=== PATIENT | male | born 1955 | race Caucasian/White ===

== ENCOUNTER 2021-10-22 10:24 | Outpatient (CLI) | payer BC, SELFPAY ==
[2021-10-22 12:21] LABS: Vitamin B12 > 2000 pg/mL (211-911)
[2021-10-22 12:48] LABS: Thyroid Stim Hormone (TSH) 0.91 uIU/mL (0.358-3.74)
[2021-11-03 10:09] LABS: Free Kappa Light Chains 16.7 mg/L (3.3-19.4); Free Lambda Light Chains 17.1 mg/L (5.7-26.3)
== END 2021-10-22 23:59 | disposition home or self-care (01) ==
LOC: MTLAB 10:25
PROVIDERS: PCP Internal Medicine; Referring Provider Psychiatry & Neurology Neurology; Visit Provider Psychiatry & Neurology Neurology
DX: G62.9 Polyneuropathy, unspecified (principal); E78.00 Pure hypercholesterolemia, unspecified
CPT/HCPCS: 36415; 82607; 82746; 83883; 84425; 84443

== ENCOUNTER → 2022-11-15 | Outpatient (CLI) | payer MEDICARE, SELFPAY ==
--- NOTE | 2022-11-15 10:07 | NEURO ---
NCS and/or EMG Patient Report Ordering Doctor: Freddy Power DATE OF SERVICE: 11/15/22 Indication: Numbness in the fingertips of both hands. History of prior carpal tunnel release surgery bilaterally with resolution of prior symptoms a number of years ago. No axial or radicular neck pain. Findings: Nerve conduction studies were performed in the right and left upper extremities. The right median motor study recording the abductor pollicis brevis showed a normal amplitude, prolonged distal latency and mildly slowed conduction velocity. The right ulnar motor study recording the abductor digiti minimi showed a normal amplitude, normal distal latency and normal conduction velocity. No conduction block or focal slowing was present across the elbow. The right median sensory response recording digit two showed a slightly reduced amplitude, prolonged latency and slowed conduction velocity. The right ulnar sensory response recording digit five showed a normal amplitude, latency and conduction velocity. The right radial sensory response recording over the extensor snuff box showed a normal amplitude, latency and conduction velocity. The left median motor study recording the abductor pollicis brevis showed a normal amplitude, prolonged distal latency and borderline conduction velocity. The left ulnar motor study recording the abductor digiti minimi showed a normal amplitude, normal distal latency and normal conduction velocity. No conduction block or focal slowing was present across the elbow. The left median sensory response recording digit two showed a slightly reduced amplitude, prolonged latency and slowed conduction velocity. The left ulnar sensory response recording digit five showed a borderline amplitude, normal latency and borderline conduction velocity. The left radial sensory response recording over the extensor snuff box showed a normal amplitude, latency and conduction velocity. Right median-ulnar lumbrical / interosseous motor latencies showed a prolonged median latency compared to the ulnar. Left median-ulnar lumbrical / interosseous motor latencies showed a prolonged median latency compared to the ulnar. Needle EMG of the left upper extremity muscles was performed. No denervation was seen in any muscle. Rare fasciculations were seen in the abductor pollicis brevis. Motor units in the abductor pollicis brevis were slightly large amplitude, normal duration, normal phases with reduced recruitment. Motor units in the first dorsal interosseous were slightly large amplitude, normal duration, normal phases with normal recruitment. All other motor unit morphology, activation and recruitment patterns were normal in the remainder of the left upper extremity. Needle EMG of the left abductor pollicis brevis was performed. No denervation was seen. Motor units in the abductor pollicis brevis were slightly large amplitude, normal duration, normal phases with reduced recruitment. Impression: This is an abnormal study. There is electrophysiologic evidence of median neuropathy across the wrist in both upper extremities. The pathophysiology is demyelination with some evidence of secondary axonal loss. These findings are compatible with the clinical diagnosis of carpal tunnel syndrome. In addition, there is no electrophysiologic evidence of superimposed cervical radiculopathy in the left upper extremity. Finally, the borderline changes seen in the left ulnar nerve are of unclear significance, but may represent a very mild, chronic, non-localizing ulnar neuropathy. Phillip Quinteros D.O. Multi Select Codes Neurology Neurology Interp Codes: 79037-25 Musc tst done w/nerv tst parker (interp) (59), 94971-73 Musc test done w/n test comp (interp) and 89808-68 Nrv cndj test 13/> studies (interp)
== END | disposition home or self-care (01) ==
LOC: PSN 08:27
PROVIDERS: PCP Internal Medicine; Referring Provider Psychiatry & Neurology Neurology; Visit Provider Psychiatry & Neurology Neurology
DX: G56.03 Carpal tunnel syndrome, bilateral upper limbs (principal); G62.9 Polyneuropathy, unspecified; Z98.890 Other specified postprocedural states
CPT/HCPCS: 95885; 95886; 95913

== ENCOUNTER → 2022-11-24 | Outpatient (CLI) | payer MEDICARE, SELFPAY ==
--- NOTE | 2022-11-24 12:37 | NEURO ---
NCS and/or EMG Patient Report Ordering Doctor: Freddy Power DATE OF SERVICE: 11/24/22 Girish presents for electrodiagnostic testing of the lower limbs. He reports numbness and tingling in both feet, for approximately 10 years. Electrodiagnostic findings: Left peroneal motor nerve demonstrates prolonged distal latency with normal amplitude and reduced conduction velocity. Right peroneal motor nerve demonstrates normal distal latency and amplitude with borderline reduced conduction velocity. Left tibial motor nerve demonstrates normal distal latency with reduced amplitude and reduced conduction velocity. Right tibial motor nerve demonstrates normal distal latency with normal amplitude and reduced conduction velocity. Prolonged peroneal and tibial F waves bilaterally. Prolonged H reflex bilaterally. Prolonged sural and superficial peroneal latency noted bilaterally with reduced conduction velocities. Needle EMG testing reveals motor units of increased amplitude and duration bilaterally and peroneus longus and gastrocnemius. No denervation noted in the lumbar paraspinals. Electrodiagnostic assessment: This is an abnormal study in the lower limbs. 1. Electrodiagnostic findings are consistent with peripheral polyneuropathy, largely demyelinating, with motor and sensory involvement. 2. No electrodiagnostic evidence noted for lumbosacral radiculopathy. Multi Select Codes Neurology Neurology Interp Codes: 29517-42 Musc test done w/n test comp (interp) (2) and 70620-59 Nrv cndj test 9-10 studies (interp)
== END | disposition home or self-care (01) ==
LOC: PSN 08:33
PROVIDERS: PCP Internal Medicine; Referring Provider Psychiatry & Neurology Neurology; Visit Provider Psychiatry & Neurology Neurology
DX: R20.0 Anesthesia of skin (principal); G62.9 Polyneuropathy, unspecified
CPT/HCPCS: 95886; 95911

== ENCOUNTER → 2023-01-13 | Outpatient (CLI) | payer MEDICARE, SELFPAY ==
[2023-01-13 10:05] LABS: Hematocrit 43.7 % (40-54); Hemoglobin 14.6 g/dL (13.0-16.5); Mean Corp Hgb Conc 33.4 g/dL (32-36); Mean Corpuscular Hgb 30.5 pg (27.0-32.0); Mean Corpuscular Volume 91.2 fL (80-94); Platelet Count 185 K/mm3 (150-450); RBC Distribution Width CV 13.9 % (11.6-14.6); RBC Distribution Width SD 46.8 fl (35.1-43.9); Red Blood Count 4.79 M/mm3 (4.6-6.2); White Blood Count 5.8 K/mm3 (4.4-11.0)
[2023-01-13 10:46] LABS: Vitamin B12 1850 pg/mL (211-911)
[2023-01-13 11:23] LABS: ALB/GLOB Ratio 0.9 RATIO (0.9-2.4); AST(SGOT) 19 U/L (15-37); Alanine Aminotransfer ALT/SGPT 31 U/L (16-61); Albumin, Serum 3.7 g/dL (3.2-5.0); Alkaline Phosphatase 82 U/L (45-117); Anion Gap 6 (5-15); BUN 25 mg/dL (7-18); BUN/Creat Ratio 32.9 RATIO (10-20); Calcium,Total 9.2 mg/dL (8.5-10.1); Chloride 103 mmol/L (98-107); Creatinine, Serum 0.76 mg/dL (0.70-1.30); EST Glomerular Filtration Rate 109 mL/min (>60); Est Glom Filt Rate - Afr Amer 132 mL/min (>60); Globulin 3.9 g/dL (2.2-4.2); Glucose 95 mg/dL (74-106); Protein, Total 7.6 g/dL (6.4-8.2); Sodium Level 137 mmol/L (136-145); Thyroid Stim Hormone (TSH) 1.01 uIU/mL (0.358-3.74)
[2023-01-19 14:09] LABS: Free Kappa Light Chains 23.3 mg/L (3.3-19.4); Free Lambda Light Chains 16.6 mg/L (5.7-26.3); Vitamin B1, Thiamine 255.5 nmol/L (66.5-200.0)
== END | disposition home or self-care (01) ==
LOC: MTLAB 09:13
PROVIDERS: PCP Internal Medicine; Referring Provider Psychiatry & Neurology Neurology; Visit Provider Psychiatry & Neurology Neurology
DX: G62.9 Polyneuropathy, unspecified (principal); Z79.899 Other long term (current) drug therapy
CPT/HCPCS: 36415; 80053; 82607; 82746; 83883; 84425; 84443; 85027

== ENCOUNTER → 2023-01-27 | Outpatient (CLI) | payer MEDICARE, SELFPAY ==
[2023-01-31 14:14] LABS: Alpha-1-Globulins 0.2 g/dL (0.0-0.4); Alpha-2-Globulins 0.7 g/dL (0.4-1.0); Gamma Globulin 1.1 g/dL (0.4-1.8); Immunoglobulin A 229 mg/dL (61-437); Immunoglobulin G 1157 mg/dL (603-1613); Immunoglobulin M 54 mg/dL (20-172); PROEL- TOTAL PROTEIN 7.2 g/dL (6.0-8.5)
== END | disposition home or self-care (01) ==
PROVIDERS: PCP Internal Medicine; Visit Provider Psychiatry & Neurology Neurology
DX: G62.9 Polyneuropathy, unspecified (principal)
CPT/HCPCS: 36415; 82784; 84165; 86334; 86335